=== PATIENT | female | born 1950 | race Caucasian/White ===

== ENCOUNTER 2017-04-10 08:34 | Emergency (ER) | payer OTHER ==
--- NOTE | 2017-04-10 08:42 | UC ---
Minor Trauma HPI - HPI Summary HPI Summary: 67 year old female presents with complains of left ankle and wrist pain secondary to a fall - History of Current Complaint Stated Complaint: LEFT WRIST/KNEE COMPLAINT Time Seen by Provider: 04/10/17 08:41 Hx Obtained From: Patient Onset/Duration: Sudden Onset Severity Initially: Moderate Severity Currently: Moderate Pain Scale Used: 0-10 Numeric - 7 Aggravating Factor(s): Nothing Alleviating Factor(s): Nothing - Allergies/Home Medications Allergies/Adverse Reactions: Allergies Allergy/AdvReac Type Severity Reaction Status Date / Time No Known Allergies Allergy Verified 04/10/17 08:55 PMH/Surg Hx/FS Hx/Imm Hx Previously Healthy: Yes - Surgical History Surgical History: Yes Surgery Procedure, Year, and Place: Appendectomy - Family History Known Family History: Positive: Unknown - Social History Alcohol Use: None Substance Use Type: None Smoking Status (MU): Never Smoked Tobacco - Immunization History Most Recent Influenza Vaccination: February 2015 Review of Systems Constitutional: Negative Skin: Negative Eyes: Negative ENT: Negative Respiratory: Negative Cardiovascular: Negative Gastrointestinal: Negative Genitourinary: Negative Motor: Negative Neurovascular: Negative Musculoskeletal: Other: - left ankle pain left wrist pain Neurological: Negative Psychological: Negative All Other Systems Reviewed And Are Negative: Yes Physical Exam Triage Information Reviewed: Yes Vital Signs Reviewed: Yes Eye Exam: Normal ENT Exam: Normal Dental Exam: Normal Neck exam: Normal Neck: Positive: 1 Respiratory Exam: Normal Cardiovascular Exam: Normal Abdominal Exam: Normal Musculoskeletal: Positive: Other: - left ankle pain left wrist pain Neurological Exam: Normal Psychological Exam: Normal Skin Exam: Normal Minor Trauma Course/Dx - Differential Dx/Diagnosis Provider Diagnoses: left ankle sprain. left wrist sprain Discharge - Discharge Plan Condition: Stable Disposition: HOME Prescriptions: Meloxicam(NF) [Mobic(NF)] 7.5 mg PO BID #30 tab Patient Education Materials: Ankle Sprain (ED), Wrist Sprain (ED) Referrals: Heron Mccormick MD [Medical Doctor] - Cierra Blevins MD [Primary Care Provider] -
[2017-04-10 09:00] VITALS: BP 154/84
--- NOTE | 2017-04-10 09:55 | RAD ---
HISTORY: Fall, left ankle pain COMPARISONS: None VIEWS: 3, Frontal, lateral, and oblique views of the left ankle FINDINGS: BONE DENSITY: Normal. BONES: There is no displaced fracture. There are calcaneal enthesophytes JOINTS: There is no arthropathy. ALIGNMENT: There is no dislocation. SOFT TISSUES: Unremarkable. OTHER FINDINGS: None. IMPRESSION: NO ACUTE OSSEOUS INJURY. IF SYMPTOMS PERSIST, RECOMMEND REPEAT IMAGING.
--- NOTE | 2017-04-10 09:56 | RAD ---
HISTORY: Fall, left wrist pain COMPARISONS: None VIEWS: 3, Frontal, lateral, and oblique views of the left wrist FINDINGS: BONE DENSITY: Normal. BONES: There is no displaced fracture. JOINTS: There is no arthropathy. ALIGNMENT: There is no dislocation. SOFT TISSUES: Unremarkable. OTHER FINDINGS: None. IMPRESSION: NO ACUTE OSSEOUS INJURY. IF SYMPTOMS PERSIST, RECOMMEND REPEAT IMAGING.
== END 2017-04-10 10:15 | disposition home or self-care (01) ==
LOC: UCCORT 08:34
DX: S93.402A Sprain of unspecified ligament of left ankle, initial encounter (principal); S63.502A Unspecified sprain of left wrist, initial encounter; W19.XXXA Unspecified fall, initial encounter; Y92.9 Unspecified place or not applicable
CPT/HCPCS: 99212; G0463

== ENCOUNTER 2019-07-24 09:14 | Emergency (ER) | payer OTHER ==
--- OUTSIDE RECORDS SUMMARY | 2019-07-24 09:30 | XMS REPORT | Continuity of Care Document ---
:1950 External Reference #:[id number] Author Name Maame Haque MD, PHD Address [address] [facility], [address] [place] [address] Care Team Providers Name Role Phone Maame Haque MD, PHD - Family Care Team Information Hebrew Professor [phone] Medicine Problems Active Problems Provider Date Benign essential hypertension Maame Haque MD, PHD Onset: 03/06/2019 Rheumatoid arthritis Maame Haque MD, PHD Onset: 03/19/2019 Vitamin D deficiency Maame Haque MD, PHD Onset: 03/19/2019 Social History Type Date Description Comments Sex Unknown Tobacco Use Start: Unknown Never Smoked Cigarettes Smoking Status Reviewed: 07/10/19 Never Smoked Cigarettes ETOH Use Currently consumes alcohol socially Tobacco Use Start: Unknown Patient has never smoked Allergies, Adverse Reactions, Alerts Description No Known Drug Allergies Medications Active Medications SIG Qnty Indications Ordering Date Provider Furosemide 1-2 tab by mouth 90tabs R60.0 Shari Sidhu, 06/11/2019 20mg every morning with [employer]GER Tablets potassium as needed for water retention Potassium Chloride 1 tab by mouth 90tabs R60.0 Shari Sidhu, 06/11/2019 [place] ER every day with [employer] MA[employer]GER 10Meq furosemide Tablets ER Tramadol HCL 1 tab by mouth 60tabs M06.9 Maame Haque, 06/11/2019 50mg twice a day as , PHD Tablets needed Tylenol 8 Hour 1 tab by mouth 180tabs M06.9 Maame Haque, 06/11/2019 Arthritis Pain twice a day as , PHD needed 650mg Tablets ER Flonase Allergy 1 spray each nares 15.800ml J30.2 Maame Haque, 2018 Relief every day , PHD 50mcg/Act Suspension Metformin HCL 1-2 tab by mouth 60tabs E66.01 Maame Haque, 04/24/2019 500mg every day PHD ALLYSSA Tablets Z68.42 Methotrexate Take 5 Tablets By 20tabs M06.9 Maame Haque, 03/19/2019 2.5mg Tablets Mouth Weekly as MD PHD Directed Vitamin D3 1 tab by mouth 90units E55.9 Maame Haque, 03/19/2019 125mcg (5000 [address]) every day every , PHD Chewtabs morning Ibuprofen three times a day Unknown 600mg Tablets as needed Tumeric Unknown Multi-Vitamin 1 by mouth every Unknown Tablets day History Medications Hydrochlorothiazide Take 1 Tablet 30tabs I10 [place], 04/24/2019 - 12.5mg By Mouth Every MD Maame, 07/10/2019 Tablets Day In The PHD Morning Prednisone 1 tab by mouth 10tabs M06.9 [place], 03/19/2019 - 20mg Tablets every day MD Maame, 07/10/2019 every morning PHD Medications Administered in Office Medication SIG Qnty Indications Ordering Provider Date Injection Ketorolac Maame Haque MD, PHD 06/11/2019 Tromethamine 30 MG/mL (Toradol) Injection Immunizations CPT Code Status Date Vaccine Lot # [id number] Given 03/14/2019 Influenza Virus Vaccine, Quadrivalent, 36 Mos+, .5ML Vital Signs Date Vital Result Comment 07/10/2019 8:29am BP Systolic 133 mmHg BP Diastolic 86 mmHg Body Temperature 97.5 F Heart Rate 86 /min Respiratory Rate 18 /min Height 68 inches 5'8" Weight 303.00 lb BMI (Body Mass Index) 46.1 kg/m2 BSA (Body Surface Area) 2.44 m2 [place] body weight in kilograms 63 kg O2 % BldC Oximetry 96 % 06/11/2019 11:30am BP Systolic 174 mmHg BP Diastolic 89 mmHg Body Temperature 97.8 F Heart Rate 65 /min Respiratory Rate 18 /min Height 68 inches 5'8" Weight 307.00 lb BMI (Body Mass Index) 46.7 kg/m2 BSA (Body Surface Area) 2.45 m2 [place] body weight in kilograms 63 kg O2 % BldC Oximetry 99 % Results Test Acquired Date Facility Test Result H/L Range Note LDL Cholesterol 07/10/2019 [facility] Cholesterol 205 mg/dL High <200 1, 2 Profile [address] [place], [place] [id number] [phone] Triglycerides 95 mg/dL <150 3 HDL Cholesterol 61 mg/dL >40 4 LDL-Cholesterol 125 mg/dL < 100 5 Glycohemoglobin 07/10/2019 [facility] Glycohemoglobin 5.8 % Normal 4.2-6.3 6 A1c [address] (A1c) [place], [place] [id number] [phone] eAG 120 mg/dL Laboratory test 07/10/2019 [facility] Vitamin <pending> finding [address] [facility] D,25-[place] [address] [phone] Basic Metabolic 07/10/2019 [facility] Glucose 90 mg/dL Normal 74-1 Panel [address] [facility] [address] [place] [address] [phone] BUN 22 mg/dL High 7-18 Creatinine 0.9 mg/dL Normal 0.6-1.3 Glom Filtration Rate, Estimate >60 mL/min >60 If >60 mL/min >60 7 BUN/Creat 24.4 ratio Sodium 138 mmol/L Normal 136-145 Potassium 3.8 mmol/L Normal 3.5-5.1 Chloride 103 mmol/L Normal 98-107 Carbon Dioxide 35 mmol/L High 21-32 Anion Gap 0 mEq/L Low 8-16 Calcium 8.8 mg/dL Normal 8.5-10.1 Urine Culture 04/24/2019 [facility] Urine Culture MIXED URETHRAL F 8, 9 [address] [facility] <SEE NOTE> [place] [address] [phone] Quantity 10,000 - 50,000 <SEE NOTE> 10 Ua RFX Micro & 04/24/2019 [facility] Urine Color DK YELLOW Yellow Culture II [address] [place] [address] [phone] Urine Clarity CLEAR Clear Urine Glucose - Dipstick NEGATIVE mg/dL Negative Urine Bilirubin - Dipstick NEGATIVE Negative Urine Ketone TRACE mg/dL Negative Urine Specific [place] 1.025 Normal 1.010-1.030 Urine Blood NEGATIVE Negative Urine PH 5.5 Low 6.5-7.5 Urine Protein - Dipstick NEGATIVE mg/dL Negative Urine Urobilinogen - Dipstick 0.2 E.U./dL Normal 0.2-1.0 Urine Nitrite - Dipstick NEGATIVE Negative Urine Leuk Esterase NEGATIVE Negative Protein/Creatinine 04/24/2019 [facility] Creatinine,Urine 168.2 Not Ratio,Urine [address] mg/dL [place]ab. [place], [place] [id number] [phone] Protein,Total,Urine 12.7 mg/dL Not Estab. Protein/Creatinine Ratio 76 MG/GCRE 0-200 11 Urine Dipstick 03/06/2019 [facility] Ua Color yellow Yellow Ua Clarity clear Clear Ua Leuko negative Negative Ua Nitrite negative Negative Ua Urobilinogen 0.2 0.2 - 1.0 E.U./dL Ua Protein negative Negative Ua PH 5.0 Low 6.5-7.5 Ua Blood negative Negative Ua Specific [place] 1.030 1.010-1.030 Ua Ketones negative Negative Ua Bilirubin negative Negative Ua Glucose negative Negative Laboratory test 03/06/2019 [facility] Thyroid 2.08 Normal 0.30-4.[address] Stim uIU/[place] [address] Hormone [phone] Free T4 1.08 ng/dL Normal 0.76-1.46 Sedimentation Rate 88 mm/hr High 2-45 13 C-Reactive Protein,Quant 6.7 mg/L High <3.0 Lyme Igg & Igm By 03/06/2019 [facility] Lyme AB Igg By Western . Western Blot [address] [place] [address] [phone] P93 AB Absent . P66 AB Absent . P58 AB Absent . P45 AB Absent . P41 AB Absent . P39 AB Absent . P30 AB Absent . P28 AB Absent . P23 AB Absent . P18 AB Absent . Lyme Igg WB Interpretation Negative . 14 Lyme AB Igm By Western Blot . P41 AB Absent . P39 AB Absent . P23 AB Absent . Lyme Igm WB Interpretation Negative . 15 Laboratory test 03/06/2019 [facility] Rheumatoid 51.6 High 0.0-15.[address] Factor Screen IU/[place] [address] [phone] Vitamin D,25-Hydroxy 28.1 ng/mL Low 30.0-100.0 16 CCP Igg/Iga 03/06/2019 [facility] CCP Igg/Iga 13 units 0-[address] [place] [address] [phone] 1 M06.9,E55.9,Z13.1,T88.7xxA,I10 2 Reference Guidelines*: Desirable: ........... < 200 mg/dL Borderline High: ..... 200-239 mg/dL High: ................ >= 240 mg/dL * The National Cholesterol Education Program (NCEP) 3 Reference Guidelines*: Normal: ............. < 150 mg/dL Borderline High: .... 150-199 mg/dL High: ............... 200-499 mg/dL Very High: .......... > 500 mg/dL * Source: National Cholesterol Education Program (NCEP) 4 Reference Guidelines*: Low HDL: ..... < 40 mg/dL Normal: ..... 40-60 mg/dL Desirable: ... > 60 mg/dL *The National Cholesterol Education Program(NCEP) 5 Reference Guidelines*: Optimal:........... <100 mg/dL Near Optimal....... 100-129 mg/dL Borderline High.... 130-159 mg/dL High............... 160-189 mg/dL Very High.......... >=190 mg/dL * Source: National Cholesterol Education Program (NCEP) 6 Elevated levels of HbA1c suggest the need for more aggressive treatment of glycemia. The [place] Diabetes Association recommends that a primary goal of therapy should be a HbA1c of <7% and that physicians should re-evaluate the treatment regimen in patients with HbA1c values consistently >8%. 7 Note: Persistent reduction for 3 months or more in an eGFR <60 mL/min/1.73 m2 defines CKD. Patients with eGFR values >/=60 mL/min/1.73 m2 may also have CKD if evidence of persistent proteinuria is present. The original MDRD equation for estimated GFR is not valid for patients less than 18 years of age. Additional information may be found at www.kdoqi.org. 8 M06.9 R39.15 I10 9 MIXED URETHRAL ZIYAD 10 10,000 - 50,000 CFU/mL 11 INFCE Result Units: mg/g creat Performed at: RN - [facility] [address] [id number] Head Stock Transfer Clerk: Kylah Reynolds MD, Phone: [phone] 12 B99.10 13 This result was obtained with an ESR method that is not based on the standard Westergren Method. When comparing results obtained from the traditional Westergren ESR and this method it is important to refer to the reference range for each method. Method: Capillary Photometry 14 Positive: 5 of the following Bor[place]-specific bands: 18,23,28,30,39,41,45,58, 66, and 93. Negative: No bands or banding patterns which do not meet positive criteria. 15 Note: An equivocal or positive EIA result followed by a negative Line Blot result is considered NEGATIVE. An equivocal or positive EIA result followed by a positive Line Blot is considered POSITIVE by the CDC. Positive: 2 of the following bands: 23,39 or 41 Negative: No bands or banding patterns which do not meet positive criteria. Criteria for positivity are those recommended by CDC/ASTPHLD. p23=Osp C, t51=icoqmqpel Note: Sera from individuals with the following may cross react in the Lyme Line Blot assays: other spirochetal diseases (periodontal disease, leptospirosis, relapsing fever, yaws, and pinta); connective autoimmune (Rheumatoid Arthritis and Systemic Lupus Erythematosus and also individuals with Antinuclear Antibody); other infections (Ephesus Spotted Fever; Hernando-Hinojosa Virus, and Cytomegalovirus). 16 Vitamin D deficiency has been defined by the [place] of [employer] and an Endocrine Society practice guideline as a level of serum 25-OH vitamin D less than 20 ng/mL (1,2). The Endocrine Society went on to further define vitamin D insufficiency as a level between 21 and 29 ng/mL (2). 1. IOM ([place] of [employer]). 2010. Dietary reference intakes for calcium and D. [place]: The National Academies Press. 2. Shaji LACY, Gagan LYMAN, Rony LECHUGA, et al. Evaluation, treatment, and prevention of vitamin D deficiency: an Endocrine Society clinical practice guideline. JCEM. 2010; 96(7):1911-30. Performed at: [facility] [id number] Head Stock Transfer Clerk: Kylah Reynolds MD, Phone: [phone] 17 Negative <20 Weak positive 20 - 39 Moderate positive 40 - 59 Strong positive >59 Performed at: [facility] [id number] Head Stock Transfer Clerk: Kylah Reynolds MD, Phone: [phone] Performed at: [facility] [id number] Head Stock Transfer Clerk: Ally Marquez MD, Phone: [phone] Procedures Date Code Description Status 06/11/2019 74132 Theraputic Or Diagnostic Injection Completed 03/06/2019 00543 EKG-Tracing And Report Completed 05/22/2013 [id number] Mammogram Completed Medical Devices Description No Information Available Encounters Type Date Location Provider Dx Diagnosis Office Visit 07/10/2019 Family Maame Gonzalez, M06.9 Rheumatoid 8:30a Arnulfo Spain MD, PHD arthritis, unspecified I10 Essential (primary) hypertension E55.9 Vitamin D deficiency, unspecified Z68.42 Body mass index (BMI) 45.0-49.9, adult Office Visit 06/11/2019 11:30a Family Amara Haque M06.9 Rheumatoid Arnulfo Isabel MD, arthritis, PHD unspecified R60.0 Localized edema I10 Essential (primary) hypertension Z68.42 Body mass index (BMI) 45.0-49.9, adult Office Visit 04/24/2019 8:30a Missael Bangura6.9 Rheumatoid Arnulfo Isabel MD, arthritis, PHD unspecified M79.671 Pain in right foot E55.9 Vitamin D deficiency, unspecified I10 Essential (primary) hypertension R60.0 Localized edema R39.15 Urgency of urination J30.2 Other seasonal allergic rhinitis Z68.42 Body mass index (BMI) 45.0-49.9, adult Z13.220 Encounter for screening for lipoid disorders Z13.1 Encounter for screening for diabetes mellitus Office Visit 03/19/2019 9:00a Family [facility] [place], M06.9 Rheumatoid [facility] MD Maame, arthritis, PHD unspecified M79.671 Pain in right foot E55.9 Vitamin D deficiency, unspecified I10 Essential (primary) hypertension Office Visit 03/06/2019 1:00p [facility] [place] M72.2 Plantar fascial [facility] MD Maame, fibromatosis PHD H81.10 Benign paroxysmal vertigo, unspecified ear G47.9 Sleep disorder, unspecified E66.09 Other obesity due to excess calories R06.83 Snoring I10 Essential (primary) hypertension R31.9 Hematuria, unspecified R53.83 Other fatigue Assessments Date Code Description Provider 07/10/2019 M06.9 Rheumatoid arthritis, unspecified Maame Haque MD, PHD 07/10/2019 I10 Essential (primary) hypertension Maame Haque MD, PHD 07/10/2019 E55.9 Vitamin D deficiency, unspecified Maame Haque MD, PHD 07/10/2019 Z68.42 Body mass index (BMI) 45.0-49.9, adult Maame Haque MD , PHD 06/11/2019 M06.9 Rheumatoid arthritis, unspecified Maame Haque MD, PHD 06/11/2019 R60.0 Localized edema Maame Haque MD, PHD 06/11/2019 I10 Essential (primary) hypertension Maame Haque MD, PHD 06/11/2019 Z68.42 Body mass index (BMI) 45.0-49.9, adult Maame Haque MD , PHD 04/24/2019 M06.9 Rheumatoid arthritis, unspecified Maame Haque MD, PHD 04/24/2019 M79.671 Pain in right foot Maame Haque MD, PHD 04/24/2019 E55.9 Vitamin D deficiency, unspecified Maame Haque MD, PHD 04/24/2019 I10 Essential (primary) hypertension Maame Haque MD, PHD 04/24/2019 R60.0 Localized edema Maame Haque MD, PHD 04/24/2019 R39.15 Urgency of urination Maame Haque MD, PHD 04/24/2019 J30.2 Other seasonal allergic rhinitis Maame Haque MD, PHD 04/24/2019 Z68.42 Body mass index (BMI) 45.0-49.9, adult Maame Haque MD , PHD 04/24/2019 Z13.220 Encounter for screening for lipoid Maame Haque MD, PHD disorders 04/24/2019 Z13.1 Encounter for screening for diabetes Maame Haque MD, PHD mellitus 03/19/2019 M06.9 Rheumatoid arthritis, unspecified Maame Haque MD, PHD 03/19/2019 M79.671 Pain in right foot Maame Haque MD, PHD 03/19/2019 E55.9 Vitamin D deficiency, unspecified Maame Haque MD, PHD 03/19/2019 I10 Essential (primary) hypertension Maame Haque MD, PHD 03/06/2019 M72.2 Plantar fascial fibromatosis Maame Haque MD, PHD 03/06/2019 H81.10 Benign paroxysmal vertigo, unspecified Maame Haque MD , PHD ear 03/06/2019 G47.9 Sleep disorder, unspecified Maame Haque MD, PHD 03/06/2019 E66.09 Other obesity due to excess calories Maame Haque MD, PHD 03/06/2019 R06.83 Snoring Maame Haque MD, PHD 03/06/2019 I10 Essential (primary) hypertension Maame Haque MD, PHD 03/06/2019 R31.9 Hematuria, unspecified Maame Haque MD, PHD 03/06/2019 R53.83 Other fatigue Maame Haque MD, PHD Plan of Treatment Future Appointment(s):09/11/2019 8:30 am - Maame Haque MD, PHD at [facility]07/10/2019 - Maame Haque MD, PHDM06.9 Rheumatoid arthritis, unspecifiedComments:-Stable now with methotrexate, continue. -Use tylenol arthritis and then tramadol for pain management.-Only use the prednisone when having a flare upI10 Essential (primary) hypertensionComments:- Stable. Continue current management. Monitor -Refill of Furosemide sent in mawwdW63.9 Vitamin D deficiency, unspecifiedComments:Continue vitamin D3 supplement 5000 IU cvrtyD27.42 Body mass index (BMI) 45.0-49.9, adultComments:- Continue on your weight loss journey, your hard work will pay offAllFollow up:- Follow up in 2 months for RA Functional Status Functional Condition Comment Date Status Independent with all ADL's Active Mental Status Description No Information Available Referrals Refer to Reason for Referral Status Appt Date Jeffrey Barboza MD New Dx Rheumatoid Arthtritis RF positive, Closed 2018 Elevated Sed, CRP. Vit D deficient. Starting prednisone short course then Methotrexate. Main pain in right foot and bilateral knees are chronic. [facility] [address] [address] [phone]
--- OUTSIDE RECORDS SUMMARY | 2019-07-24 09:30 | XMS REPORT | Summary of Care ---
:1950 Author Organization [facility] Address [address] [place] [address] Care Team Providers Name Role Phone Maame Haque MD PhD Primary Care Provider Reason for Visit Reason Comments Follow-up Encounter Details Date Type Department Care Team Description 07/03/2019 Office Visit Joe Simons, Seropositive rheumatoid arthritis (Primary Dx); Rheumatology MD Jeffrey High risk medication use [address] [id number] [place] [address] [phone] Allergies No Known Allergiesdocumented as of this encounter (statuses as of 07/04/2019) Medications Medication Sig Dispensed Refills Start End Status Date Date ibuprofen Take 600 mg by 0 Active (ADVIL,MOTRIN) 600 MG mouth every 6 tablet (six) hours as needed for Pain TURMERIC PO Take by mouth 0 Active Multiple Vitamin Take 1 tablet 0 Active (MULTIVITAMIN) tablet by mouth daily predniSONE (DELTASONE) Take 20 mg by 0 Active 20 MG tablet mouth as needed metFORMIN HCl 500 MG TAKE 1 TO 2 0 04/24/20 Active Oral Tablet TABS BY MOUTH 19 (GLUCOPHAGE) EVERY DAY Vitamin D3 125 MCG Chew by Mouth 0 03/19/20 Active (5000 UT) Oral Tablet 19 Chewable Furosemide 20 MG Oral TAKE 1 TO 2 0 06/11/19 Active Tablet (LASIX) TABS BY MOUTH 20 EVERY MORNING WITH POTASSIUM NEEDED FOR WATER RETENTION Klor-Con M10 10 MEQ TAKE 1 TABLET 0 06/11/19 Active Oral Tablet Extended BY MOUTH EVERY 20 Release DAY WITH FUROSEMIDE Methotrexate 2.5 MG Take 6 tablets 72 tablet 1 07/03/19 Active Oral Tablet by mouth every 20 020 7 (seven) days Folic Acid 1 MG Oral Take 1 tablet 90 tablet 1 07/03/19 Active Tablet (FOLVITE) by mouth daily 20 020 hydroCHLOROthiazide TAKE 1 TABLET 0 04/24/20 Discontinued 12.5 MG Oral Tablet BY MOUTH EVERY 020 (HYDRODIURIL) DAY IN THE MORNING Methotrexate 2.5 MG Take 6 tablets 72 tablet 1 05/08/20 Discontinued Oral Tablet by mouth every 020 (Reorder) 7 (seven) days Folic Acid 1 MG Oral Take 1 tablet 90 tablet 1 05/08/20 Discontinued Tablet (FOLVITE) by mouth daily 020 (Reorder) documented as of this encounter (statuses as of 07/04/2019) Active Problems No known active problemsdocumented as of this encounter (statuses as of 2019) Social History Tobacco Use Types Packs/Day Years Used Date Never Smoker 0 Smokeless Tobacco: Never Used Tobacco Cessation: Counseling Given: No Alcohol Use Drinks/Week oz/Week Comments Yes social Sex Assigned at Date Recorded Not on file Job Start Date Occupation Industry Not on file Not on file Not on file Travel History Travel Start Travel End No recent travel history available. documented as of this encounter Last Filed Vital Signs Vital Sign Reading Time Taken Comments Blood Pressure 147/93 07/03/2019 9:44 AM EST Pulse 78 07/03/2019 9:44 AM EST Temperature 36.9 07/03/2019 9:44 AM EST C (98.5 F) Respiratory Rate 16 07/03/2019 9:44 AM EST Oxygen Saturation 95% 07/03/2019 9:44 AM EST Inhaled Oxygen Concentration - - Weight 134.7 kg (297 lb) 07/03/2019 9:44 AM EST Height 172.7 cm (5' 8") 07/03/2019 9:44 AM EST Body Mass Index 45.16 07/03/2019 9:44 AM EST documented in this encounter Progress Notes Jeffrey Simons MD - 07/03/2019 9:45 AM EST Subjective: Patient ID: Rosario Sands is a 69 y.o. female. She has seropositive rheumatoid arthritis. She was initially seen 2 months ago. At that time, I continued methotrexate initially prescribed by her primary care providers. Current dose is 6 tablets per week as well as folic acid 1 mg per day. I did blood work, which confirmed her rheumatoid factor positivity. At the time of her appointment, I did not find synovitis, likely related to the fact that she had been on the methotrexate prior to me seeing her. Since her last appointment she has been doing well except for a couple of weeks when she was in [place] when her symptoms came back, mostly inher knees, related to the fact that she did not have her medication available. Since then she has been doing better. She is tolerating the medication well. Rheumatologic review of systems, otherwise, unremarkable. Musculoskeletal exam today, no synovitis. ASSESSMENT: Seropositive rheumatoid arthritis, seems to be controlled on methotrexate. PLAN: 1. Continue medications without changes. 2. Routine labs today. 3. Followup appointment in 3-4 months. Results for orders placed or performed in visit on 07/03/19 Sedimentation rate, automated Result Value Ref Range Sed Rate - ESR 31 (H) <30 mm/hr Inflammatory C-Reactive Protein (CRP) Result Value Ref Range C Reactive Protein 4.2 <8.0 mg/L Creatinine with GFR Result Value Ref Range Creatinine 1.03 (H) 0.50 - 0.90 mg/dL GFR Non 2008 CDK-EPI 55 (L) >60 mL/min/1.73m2 GFR 2008 CKD-EPI 64 >60 mL/min/1.73m2 CBC and Differential Result Value Ref Range White Blood Cell 4.1 4 - 10 10*3/uL Red Blood Cell 4.49 4.1 - 5.3 10*6/uL Hemoglobin 13.2 11.5 - 15.5 g/dL Hematocrit 40.2 36 - 45 % Mean Cell Volume 89.4 80 - 96 fL Mean Cell Hemoglobin 29.4 27 - 33 pg Mean Cell Hgb Conc 33.0 32.0 - 36.0 g/dL Red Cell Dist Width 16.3 (H) 11.5 - 14.5 % Platelet Count 256 150 - 400 10*3/uL Differential Type Manual Diff Neutrophil 61 % Lymphocyte 30 % Monocyte 3 % Eosinophil 3 % Basophil 3 % Abs Neutrophil 2.49 1.8 - 7.0 10*3/uL Abs Lymphocyte 1.25 1.2 - 4.0 10*3/uL Abs Monocyte 0.12 0 - 0.8 10*3/uL Abs Eosinophil 0.12 0 - 0.5 10*3/uL Abs Basophil 0.12 0 - 0.2 10*3/uL Poikilocytosis 1+ AST Result Value Ref Range AST/SGO 21 <32 U/L ALT Result Value Ref Range ALT/SGP 23 <33 U/L HPI Rosario has a past medical history of Arthritis and Hypertension. Rosario has a past surgical history that includes Appendectomy. Her family history includes Cystic fibrosis in her brother and sister. Rosario reports that she has never smoked. She has never used smokeless tobacco. She reports current alcohol use. No history on file for drug. Rosario has a current medication list which includes the following prescription(s) : folic acid, furosemide, hydrochlorothiazide, ibuprofen, klor-con m10, metformin, methotrexate, multivitamin, prednisone, turmeric, and vitamin d3. Rosario has No Known Allergies. Review of Systems Constitutional: Negative. HENT: Negative. Eyes: Negative. Respiratory: Negative. Cardiovascular: Negative. Gastrointestinal: Negative. Endocrine: Negative. Genitourinary: Negative. Musculoskeletal: Positive for arthralgias. Negative for joint swelling. Skin: Negative. Allergic/Immunologic: Negative. Neurological: Negative. Hematological: Negative. Psychiatric/Behavioral: Negative. Objective: Physical Exam Vitals signs reviewed. Constitutional: Appearance: She is well-developed. HENT: Head: Normocephalic and atraumatic. Eyes: Conjunctiva/sclera: Conjunctivae normal. Neck: Thyroid: No thyromegaly. Trachea: No tracheal deviation. Cardiovascular: Rate and Rhythm: Normal rate and regular rhythm. Pulmonary: Effort: Pulmonary effort is normal. No respiratory distress. Musculoskeletal: General: No swelling or tenderness. Skin: General: Skin is warm and dry. Neurological: Mental Status: She is alert and oriented to person, place, and time. documented in this encounter Plan of Treatment Date Type Specialty Care Team Description 11/06/2019 Office Visit Rheumatology Jeffrey Simons MD [address] [place] [address] [address] [place] [address] [phone] Health Maintenance Due Date Last Done Comments Hepatitis C Screening (B. 1950 [id number]) MMR Vaccines (1 of 1 - Standard 01/21/1951 series) Varicella Vaccines (1 of 2 - 01/21/1951 2-dose childhood series) DTaP,Tdap,and Td Vaccines (1 - 01/21/1959 Tdap) Breast Cancer Screening 2 years 01/21/2002 Colon Cancer Screening 10 yrs 01/21/2002 Zoster Vaccines (1 of 2) 01/21/2002 Osteoporosis Screening 2 yr 01/21/2017 Pneumococcal Vaccine: 65+ Years (1 01/21/2017 of 2 - PCV13) Influenza Vaccine 02/19/2019 HIB Vaccines Aged Out No longer eligible based on patient's age to complete this topic Hepatitis A Vaccines Aged Out No longer eligible based on patient's age to complete this topic Hepatitis B Vaccines Aged Out No longer eligible based on patient's age to complete this topic IPV Vaccines Aged Out No longer eligible based on patient's age to complete this topic Pneumococcal Vaccine: Pediatrics Aged Out No longer eligible based on (0 to 5 Years) and At-Risk patient's age to complete this Patients (6 to 64 Years) topic documented as of this encounter Procedures Procedure Name Priority Date/Time Associated Comments Diagnosis CREATININE WITH GFR Routine 07/03/2019 10:03 High risk Results for this AM EST medication use procedure are in the results section. SEDIMENTATION RATE, Routine 07/03/2019 10:03 High risk Results for this AUTOMATED AM EST medication use procedure are in the results section. CBC AND DIFFERENTIAL Routine 07/03/2019 10:03 High risk Results for this AM EST medication use procedure are in the results section. INFLAMMATORY Routine 07/03/2019 10:03 High risk Results for this C-REACTIVE PROTEIN AM EST medication use procedure are in (CRP) the results section. ALT Routine 07/03/2019 10:03 High risk Results for this AM EST medication use procedure are in the results section. AST Routine 07/03/2019 10:03 High risk Results for this AM EST medication use procedure are in the results section. documented in this encounter Results Sedimentation rate, automated (07/03/2019 10:03 AM EST) Sed Rate - ESR 31 (H) <30 mm/hr [facility] Pathology Specimen EDTA Whole Blood Performing Organization Address [facility] Phone Number [facility] PATH[facility] [address] [place] [address] [facility] [address] [place] [address] Pathology Inflammatory C-Reactive Protein (CRP) (07/03/2019 10:03 AM EST) C Reactive Protein 4.2 <8.0 mg/L [facility] Pathology Specimen Plasma Performing Organization Address [facility] Phone Number [facility] [address] [place] [address] [facility] [address] [place] [address] Pathology Creatinine with GFR (07/03/2019 10:03 AM EST) Creatinine 1.03 (H) 0.50 - 0.90 [facility] mg/dL [facility] Pathology GFR Non 55 (L) >60 [facility] [employer] [place] 2008 CDK-EPI mL/min/1.73m2 [facility] Pathology GFR 64 >60 [facility] 2009 CKD-EPI mL/min/1.73m2 [facility] Pathology Specimen Plasma Performing Organization Address [facility] Phone Number [facility] CL[facility]OLOG[facility] [address] [place] [address] [facility] [address] [place] [id number] Pathology CBC and Differential (07/03/2019 10:03 AM EST) White Blood Cell 4.1 4 - 10 10*3/uL [facility] Pathology Red Blood Cell 4.49 4.1 - 5.3 [facility] 10*6/uL [facility] Pathology Hemoglobin 13.2 11.5 - 15.5 [facility] g/dL [facility] Pathology Hematocrit 40.2 36 - 45 % [facility] Pathology Mean Cell Volume 89.4 80 - [address] [facility] Pathology Mean Cell Hemoglobin 29.4 27 - [address] [facility] Pathology Mean Cell Hgb Conc 33.0 32.0 - 36.0 [facility] g/dL [facility] Pathology Red Cell Dist Width 16.3 (H) 11.5 - 14.5 % [facility] Platelet Count 256 150 - 400 [facility] 10*3/uL [facility] Pathology Differential Type Manual Diff [facility] Pathology Neutrophil 61 % [facility] Lymphocyte 30 % [facility] Monocyte 3 % [facility] Eosinophil 3 % [facility] Pathology Basophil 3 % [facility] Pathology Abs Neutrophil 2.49 1.8 - 7.0 [facility] 10*3/uL [facility] Pathology Abs Lymphocyte 1.25 1.2 - 4.0 [facility] 10*3/uL [facility] Pathology Abs Monocyte 0.12 0 - 0.8 [facility] 10*3/uL [facility] Pathology Abs Eosinophil 0.12 0 - 0.5 [facility] 10*3/uL [facility] Pathology Abs Basophil 0.12 0 - 0.2 [facility] 10*3/uL [facility] Pathology Poikilocytosis 1+ [facility] Pathology Specimen EDTA Whole Blood Performing Organization Address [facility] Phone Number [facility] PATHOLOG[facility] [address] [place] [address] [facility] [address] [place] [address] Pathology AST (07/03/2019 10:03 AM EST) AST/SGO 21 <32 U/L [facility] Pathology Specimen Plasma Performing Organization Address [facility] Phone Number [facility] [address] [place] [address] [facility] [address] [place] [address] Pathology ALT (07/03/2019 10:03 AM EST) ALT/SGP 23 <33 U/L [facility] Pathology Specimen Plasma Performing Organization Address [facility] Phone Number [facility] [address] [place] [address] [phone] [facility] [address] [place] [address] Pathology documented in this encounter Visit Diagnoses Diagnosis Seropositive rheumatoid arthritis - Primary Rheumatoid arthritis High risk medication use Encounter for long-term (current) use of other medications documented in this encounter
--- OUTSIDE RECORDS SUMMARY | 2019-07-24 09:30 | XMS REPORT | Continuity of Care Document ---
:1950 External Reference #:[id number] Author Name Maame Haque MD, PHD Address [address], [address] [place] [address] Care Team Providers Name Role Phone Maame Haque MD, PHD - Family Care Team Information [employer] Medicine Problems Active Problems Provider Date Benign essential hypertension Maame Haque MD, PHD Onset: 03/06/2019 Rheumatoid arthritis Maame Haque MD, PHD Onset: 03/19/2019 Vitamin D deficiency Maame Haque MD, PHD Onset: 03/19/2019 Social History Type Date Description Comments Sex Unknown Tobacco Use Start: Unknown Never Smoked Cigarettes Smoking Status Reviewed: 06/11/19 Never Smoked Cigarettes ETOH Use Currently consumes alcohol socially Tobacco Use Start: Unknown Patient has never smoked Allergies, Adverse Reactions, Alerts Description No Known Drug Allergies Medications Active Medications SIG Qnty Indications Ordering Date Provider Furosemide 1-2 tab by mouth 30tabs R60.0 [place], 20mg Tablets every morning MD Maame, 0 with potassium PHD as needed for water retention Potassium Chloride [place] 1 tab by mouth 30tabs R60.0 [place], ER every day with MD Maame, 0 10Meq Tablets ER furosemide PHD Tramadol HCL 1 tab by mouth 60tabs M06.9 [place], 50mg Tablets twice a day as MD Maame, 0 needed PHD Tylenol 8 Hour Arthritis 1 tab by mouth 180tabs M06.9 [place], Pain twice a day as MD Maame, 0 650mg Tablets ER needed PHD Hydrochlorothiazide 1 tab by mouth 30tabs I10 [place], 12.5mg every morning MD Maame, 9 Tablets PHD Flonase Allergy Relief 1 spray each 15.800ml J30.2 [place], nares every day MD Maame, 9 50mcg/Act Suspension PHD Metformin HCL 1-2 tab by mouth 60tabs E66.01 [place], 500mg Tablets every day MD Maame, 9 PHD Z68.42 Prednisone 1 tab by mouth 10tabs M06.9 Maame Haque, 03/19/2019 20mg Tablets every day every , PHD morning Methotrexate Take 5 Tablets By 20tabs M06.9 Maame Haque, 03/19/2019 2.5mg Tablets Mouth Weekly as , PHD Directed Vitamin D3 1 tab by mouth 90units E55.9 Maame Haque, 03/19/2019 125mcg (5000 Ut) every day every , PHD Chewtabs morning Ibuprofen three times a day Unknown 600mg Tablets as needed Tumeric Unknown Multi-Vitamin 1 by mouth every Unknown Tablets day Medications Administered in Office Medication SIG Qnty Indications Ordering Provider Date Injection Ketorolac Maame Haque MD, PHD 06/11/2019 Tromethamine 30 MG/mL (Toradol) Injection Immunizations CPT Code Status Date Vaccine Lot # [id number] Given 03/14/2019 Influenza Virus Vaccine, Quadrivalent, 36 Mos+, .5ML Vital Signs Date Vital Result Comment 06/11/2019 11:30am BP Systolic 174 mmHg BP Diastolic 89 mmHg Body Temperature 97.8 F Heart Rate 65 /min Respiratory Rate 18 /min Height 68 inches 5'8" Weight 307.00 lb BMI (Body Mass Index) 46.7 kg/m2 BSA (Body Surface Area) 2.45 m2 [place] body weight in kilograms 63 kg O2 % BldC Oximetry 99 % 04/24/2019 8:26am BP Systolic Sitting Left Arm 151 mmHg BP Diastolic Sitting Left Arm 76 mmHg Body Temperature 96.3 F Heart Rate 83 /min Respiratory Rate 20 /min Height 68 inches 5'8" Weight 297.00 lb BMI (Body Mass Index) 45.2 kg/m2 BSA (Body Surface Area) 2.42 m2 [place] body weight in kilograms 63 kg O2 % BldC Oximetry 95 % Results Test Acquired Date Facility Test Result H/L Range Note Urine Culture 04/24/2019 [facility] Urine Culture MIXED URETHRAL 1, [address] <SEE NOTE> [place] [address] [phone] Quantity 10,000 - 50,000 <SEE NOTE> 3 Ua RFX Micro & 04/24/2019 [facility] Urine Color DK YELLOW Yellow Culture II [address] [place], [place] [id number] [phone] Urine Clarity CLEAR Clear Urine Glucose - Dipstick NEGATIVE mg/dL Negative Urine Bilirubin - Dipstick NEGATIVE Negative Urine Ketone TRACE mg/dL Negative Urine Specific [place] 1.025 Normal 1.010-1.030 Urine Blood NEGATIVE Negative Urine PH 5.5 Low 6.5-7.5 Urine Protein - Dipstick NEGATIVE mg/dL Negative Urine Urobilinogen - Dipstick 0.2 E.U./dL Normal 0.2-1.0 Urine Nitrite - Dipstick NEGATIVE Negative Urine Leuk Esterase NEGATIVE Negative Protein/Creatinine 04/24/2019 [facility] Creatinine,Urine 168.2 Not Ratio,Urine [address] mg/dL Estab. [place], [place] [id number] [phone] Protein,Total,Urine 12.7 mg/dL Not Estab. Protein/Creatinine Ratio 76 MG/GCRE 0-200 4 Urine Dipstick 03/06/2019 [facility] Ua Color yellow Yellow Ua Clarity clear Clear Ua Leuko negative Negative Ua Nitrite negative Negative Ua Urobilinogen 0.2 0.2 - 1.0 E.U./dL Ua Protein negative Negative Ua PH 5.0 Low 6.5-7.5 Ua Blood negative Negative Ua Specific [place] 1.030 1.010-1.030 Ua Ketones negative Negative Ua Bilirubin negative Negative Ua Glucose negative Negative Laboratory test 03/06/2019 [facility] Thyroid 2.08 Normal 0.30-4.[address] Stim uIU/[place] [address] Hormone [phone] Free T4 1.08 ng/dL Normal 0.76-1.46 Sedimentation Rate 88 mm/hr High 2-45 6 C-Reactive Protein,Quant 6.7 mg/L High <3.0 Lyme Igg & Igm By 03/06/2019 [facility] Lyme AB Igg By Western . Western Blot [address] [place] [address] [phone] P93 AB Absent . P66 AB Absent . P58 AB Absent . P45 AB Absent . P41 AB Absent . P39 AB Absent . P30 AB Absent . P28 AB Absent . P23 AB Absent . P18 AB Absent . Lyme Igg WB Interpretation Negative . 7 Lyme AB Igm By Western Blot . P41 AB Absent . P39 AB Absent . P23 AB Absent . Lyme Igm WB Interpretation Negative . 8 Laboratory test 03/06/2019 [facility] Rheumatoid 51.6 High 0.0-15.[address] Factor Screen IU/[place] [address] [phone] Vitamin D,25-Hydroxy 28.1 ng/mL Low 30.0-100.0 9 CCP Igg/Iga 03/06/2019 [facility] CCP Igg/Iga 13 units 0-[address] [place] [address] [phone] 1 M06.9 R39.15 I10 2 MIXED URETHRAL ZIYAD 3 10,000 - 50,000 CFU/mL 4 INFCE Result Units: mg/g creat Performed at: RN - [facility] [address] [id number] Produce Wrapper: Kylah Reynolds MD, Phone: [phone] 5 h81.10 6 This result was obtained with an ESR method that is not based on the standard Westergren Method. When comparing results obtained from the traditional Westergren ESR and this method it is important to refer to the reference range for each method. Method: Capillary Photometry 7 Positive: 5 of the following Borrelia-specific bands: 18,23,28,30,39,41,45,58, 66, and 93. Negative: No bands or banding patterns which do not meet positive criteria. 8 Note: An equivocal or positive EIA result [...] are those recommended by CDC/ASTPHLD. p23=Osp C, o53=gksnkfgds Note: Sera from individuals with the following may cross react in the Lyme Line Blot assays: other spirochetal diseases (periodontal disease, leptospirosis, relapsing fever, yaws, and pinta); connective autoimmune (Rheumatoid Arthritis and Systemic Lupus Erythematosus and also individuals with Antinuclear Antibody); other infections ([place] Spotted Fever; Hernando-Hinojosa Virus, and Cytomegalovirus). 9 Vitamin D deficiency has been defined by the [place] of Medicine and an Endocrine Society practice guideline as a level of serum 25-OH vitamin D less than 20 ng/mL (1,2). The Endocrine Society went on to further define vitamin D insufficiency as a level between 21 and 29 ng/mL (2). 1. IOM ([place] of Medicine). 2010. Dietary reference intakes for calcium and D. [place]: The National Academies Press. 2. Shaji MF, Gagan LYMAN, Rony LECHUGA, et al. Evaluation, treatment, and prevention of vitamin D deficiency: an Endocrine Society clinical practice guideline. JCEM. 2010; 96(7):1911-30. Performed at: [facility] [address] [id number] Produce Wrapper: Kylah Reynolds MD, Phone: [phone] Negative <20 Weak positive 20 - 39 Moderate positive 40 - 59 Strong positive >59 Performed at: [facility] [address] [id number] Produce Wrapper: Kylah Reynolds MD, Phone: [phone] Performed at: [address] [id number] Produce Wrapper: Ally Marquez MD, Phone: [phone] Procedures Date Code Description Status 03/06/2019 47240 EKG-Tracing And Report Completed 05/22/2013 30149984 Mammogram Completed Medical Devices Description No Information Available Encounters Type Date Location Provider Dx Diagnosis Office Visit 04/24/2019 Family Medicine Maame Haque, M06.9 Rheumatoid 8:30a Arnulfo Spain MD, PHD arthritis, unspecified M79.671 Pain in right foot E55.9 Vitamin D deficiency, unspecified I10 Essential (primary) hypertension R60.0 Localized edema R39.15 Urgency of urination J30.2 Other seasonal allergic rhinitis Z68.42 Body mass index (BMI) 45.0-49.9, adult Z13.220 Encounter for screening for lipoid disorders Z13.1 Encounter for screening for diabetes mellitus Office Visit 03/19/2019 9:00a [facility] [place] M06.9 Rheumatoid [facility] MD Maame, arthritis, PHD unspecified M79.671 Pain in right foot E55.9 Vitamin D deficiency, unspecified I10 Essential (primary) hypertension Office Visit 03/06/2019 1:00p [facility] [place] M72.2 Plantar fascial [facility] MD Maame, fibromatosis PHD H81.10 Benign paroxysmal vertigo, unspecified ear G47.9 Sleep disorder, unspecified E66.09 Other obesity due to excess calories R06.83 Snoring I10 Essential (primary) hypertension R31.9 Hematuria, unspecified R53.83 Other fatigue Assessments Date Code Description Provider 06/11/2019 M06.9 Rheumatoid arthritis, unspecified Maame Haque [...] , PHD ear 03/06/2019 G47.9 Sleep disorder, Maame Donahue MD, PHD 03/06/2019 E66.09 Other obesity due to excess calories Maame Haque MD, PHD 03/06/2019 R06.83 Snoring Maame Haque MD, PHD 03/06/2019 I10 Essential (primary) hypertension Maame Haque MD, PHD 03/06/2019 R31.9 Hematuria, unspecified Maame Haque MD, PHD 03/06/2019 R53.83 Other fatigue Maame Haque MD, PHD Plan of Treatment Future Appointment(s):07/10/2019 8:30 am - [facility] PH[facility]2019 - Maame Haque MD, PHDM06.9 Rheumatoid arthritis, unspecifiedNew Medication:Tramadol HCL 50 mg - 1 tab by mouth twice a day as neededTylenol 8 Hour Arthritis Pain 650 mg - 1 tab by mouth twice a day as neededComments:no prednisone or motrin for 3 days after toradol shot. Use tylenol arthritis and then tramadol if still terrible.R60.0 Localized edemaNew Medication:Furosemide 20 mg - 1-2 tab by mouth every morning with potassium as needed for water retentionPotassium Chloride E[place]ice ER 10 Meq - 1 tab by mouth every day with [id number] Essential (primary) hypertensionComments:PRESSURE POINTS1 What high blood pressure is. Blood pressure is the force that your blood exerts onthe leija of the arteries it flows through, just like water flowing through a garden hose pushes against the hose??s leija. Your blood pressure consists of two numbers. ??Systolic is the pressure on blood vessel leija during heart beats,?? says Colin Singleton, professor of cardiovascular disease prevention at the [employer]. ??Diastolic is the pressure between beats,?? so it??s lower. When people have high blood pressure??also called hypertension??it??s often because blood vessels are too rigid to expand when the heart pumps. It??s as though the hose were made of glass instead of rubber. 2 Everyone is at risk. Why worry about high blood pressure if you haven??t been diagnosed with it? Because, odds are, you eventually will be. ??Over time, 90 percent of people in this country develop hypertension,?? says Geremias Pollock, professor of preventive medicine at the [employer]. That??s because blood pressure typically creeps up as youage. In the Atherosclerosis Risk in Communities study, which followed more than 15,000 Americans aged 45 to 64, average systolic blood pressure calvin by five points in five years.1 ??Blood pressures drift upward as people get older and they??re exposed to long-term excess sodium,?? explains Phill. ??That??s why almost all adults are going to get blood pressures that put them at higher risk for heart disease and stroke.?? But most hypertension is preventable with a healthy diet and exercise, he adds.3 Your risk starts to rise at any blood pressure above ?? normal.?? Doctors used to diagnose patientswith hypertension when their systolic pressure reached NORMAL BLOOD PRESSURE <120/<80 * Recommendations : Healthy lifestyle choices and yearly checks.ELEVATED BLOOD PRESSURE 120-129/& lt;80 * Recommendations: Healthy lifestyle changes, reassessed in 3-6 months.HIGH BLOOD PRESSURE / STAGE 1 130-139/80-89 * Recommendations: 10-year heart disease and stroke risk assessment. If less than 10% risk, lifestyle changes, reassessed in 3-6 months. If higher, lifestyle changes and medication with monthly follow-ups until blood pressure is controlled. HIGH BLOOD PRESSURE / STAGE 2 >140/>90 * Recommendations: Lifestyle changes and 2 different classes of medicine, with monthly follow-ups until blood pressure is controlled.How much diet and exercise can lower your blood pressure Got high blood pressure? You??re in good company.Nearly half of [place] adults now have hypertension, according to recent guidelines from the [place] Heart Association and the [place] College of Cardiology.That means that many people who had ??prehypertension?? according to the old guidelines now have ??stage 1 hypertension.?? Most of them don??t need to start taking drugs to lower their pressure (that depends on other risk factors). Instead, the guidelines recommend a healthy lifestyle.Why? Because it works. Here??s how much your systolic pressure (the higher of your two blood pressure numbers) could fall with diet and exercise, according to the new guidelines:1. Eat a DASH diet: 11 pointsDon??t want to count servings?Start by filling half your plate with fruits and vegetables.A DASH-style diet does it all: protects your heart, piles on the fruits and veggies, and cuts unhealthy carbs. It??s not only low in saturated fat, sugar, and salt, it??s also rich in nutrients like potassium, magnesium, calcium, and fiber.Plus, DASH works for omnivores or vegetarians.2. Exercise: 5 pointsAny kind of exercise helps.All formsof exercise will lower blood pressure, but the best evidence is for aerobic activity. Aim for 90 to 150 minutes a week of aerobics (brisk walking, biking, running, etc.) and/or resistance training (biceps curls, leg presses, etc.).If you??re starting with walking, here??s how to ramp up the intensity gradually.3. Lose weight: 5 pointsDropping extra pounds can lower your pressure.Losing excess weight helps lower blood pressure. Expect about a 1 point drop in systolic pressure for every 2 pounds you lose.4. Cut salt: 5 pointsMost sodium comes from packaged and restaurant foods that don??t even taste salty.To lower blood pressure, cut your sodium by 1,000 milligrams a day, ideally to 1,500 mg a day. Start with these seven foods.Bread. About 100 to 200 mg of sodium per slice is typical. Pepperidge Farm and some other brands make it easy to stay at the low end.Cheese. Most types have 150 to 250 mg ofsodium per ounce. Try [place] (just 40 to 60 mg) or fresh mozzarella (80 to 100 mg) or just 1 ??slim cut?? or ??thin ?? slice of your favorite variety.Poultry. The salt solution that??s often added to rawchicken or turkey can add 120 mg of sodium to the poultry??s 80 mg of (naturally occurring) sodium. So avoid poultry with labels like ??Contains up to 15% of a solution.??Deli meats. Just 2 oz. can pile 500 to 700 mg of sodium on your sandwich. Get Boar??s Head??s (or another brand??s) ??low-sodium? ? meats that are sliced at the deli counter (about 50 to 80 mg in 2 oz.).Soup. Most soups deliver 600 to 900 mg of sodium per cup. Try Imagine, Yellow[place], Dr. Ferraro??s, April??s Organic, or Silk Winding Machine [employer] Jimi??s ??Light in Sodium?? or ??Reduced Sodium?? soups instead (200 to 400 mg).Pizza. You can easily get 1,000 mg of sodium in 2 slices. Go light on the cheese, and replace meat with veggies (not olives).Restaurant entre??es. Many pack 1,000 to 2,000 mg of sodium. Save half for later. And add a side salad or other veggies to boost potassium.5. Get more potassium: 4 to 5 pointsAnother reason to eat more vegetables: potassium.The goal: Get 3,500 to 5,000 milligrams of potassium a day. You??ll get the most bang for your calorie renae with fruits and vegetables. Some examples: Calories Potassium (mg):Baked potato with skin (1 small) 130 750 Beet greens (?? cup cooked) 20 650 Yellowfin tuna (4 oz. cooked) [id number] Sweet potato with skin (1 small) 130 540 Wild Coho salmon (4 oz. cooked) 160 490 Spinach (?? cupcooked) 20 420 Banana (1) 110 420 Low-fat plain yogurt (6 oz.) 110 400 Fat-free milk (1 cup) 80 380 Cantaloupe (??) 50 370 Lentils (?? cup cooked) 120 370 [place] beans ( ?? cup cooked) 120 370 Tomato sauce (?? cup) 30 360 Avocado (?? cup) 120 360 Spinach (2 cups raw) 10 340 Shelled edamame (?? cup cooked) 100 340 [place] or nectarine (1) 60 290 [place] sprouts (?? cup cooked) 30 250 [place] (1) 70 240 Lalo lettuce (2 cups raw) 10 230 Apple (1) 100 200 6. Limit alcohol: 4 pointsLimiting alcohol helps keep your pressure in check.If you drink, stop at one drink a day for women or two for men.Find this article interesting and useful? Order a copy of Safe & Easy Steps to Lower Your Blood Pressure. Nine out of 10 Americans will eventually have high blood pressure and, with it, an increased risk of stroke, heart attack, diabetes, dementia, and more. Eating the right diet, losing weight, and exercising can keep your pressure under control. And, if you do have hypertension, it can lower your pressureas much as? ?or more than??prescription drugs. This booklet, from the editors of [employer], shows you how. (48 pages)Dr. Haque Can Print this out for you.The information in this post first appeared in [employer] Health[employer] in May 2017.WHAT WORKS? If you have high blood pressure, here??s roughly how much of a drop in systolic pressure you can expect from changes in diet and from exercise.Advice ~ What It Means ~ Typical Drop in Systolic Blood Pressure: Maintain a Normal Weight ~ Lose??or don??t gain??excess weight ~ 5 points for every 10 pounds you lose. Follow a DASH Diet ~ Eat a diet: ?? rich in vegetables & fruits ?? that includes whole grains, low-fat dairy, poultry, fish, beans, nuts, & oils ?? low in sugar & red meat ~ 11 pointsCut Sodium ~ Consume no more than 2,400??milligrams a day (1,500 mg a day lowers pressure even more)~ 5 pointsBoost Potassium ~ Shoot for 3,500 to 5,000 milligrams a day, mostly from fruits and vegetables ~ 4-5 pointsExercise ~ Doat least 30 minutes of aerobic activity (like brisk walking) most days of the week ~ 5 pointsLimitAlcohol ~ Men: No more than 2 drinks a day Women: No more than 1 drink a day ~ 4 [id number] Body mass index (BMI) 45.0-49.9, adultFollow up:4 week follow up Functional Status Functional Condition Comment Date Status Independent with all ADL's Active Mental Status Description No Information Available Referrals Refer to Reason for Referral Status Appt Date Jeffrey Barboza MD New Dx Rheumatoid Arthtritis RF positive, Closed 2018 Elevated Sed, CRP. Vit D deficient. Starting prednisone short course then Methotrexate. Main pain in right foot and bilateral knees are chronic. [facility] [address] [address] [phone]
[2019-07-24 10:13] VITALS: BP 150/64
--- NOTE | 2019-07-24 10:40 | UC ---
Respiratory Complaint HPI - HPI Summary HPI Summary: 69 y/o female presents to the urgent care c/o dry cough nasal congestion w/ clear nasal discharge, fatigue, body aches, chills and mild dizziness since Monday07/21/2019. Yesterday, she developed mild wheezing. She has been taking OTC medications w/o any improvement. Pt has low grade fever on Monday, but nothing yesterday. Pt denies Hx of smoking, SOB, chest pain, abdominal pain, neck pain, N/V/D. - History of Current Complaint Chief Complaint: UCGeneralIllness Stated Complaint: DIZZY,NAUSEA,COUGH Time Seen by Provider: 07/24/19 10:38 Hx Obtained From: Patient Onset/Duration: Gradual Onset, Lasting Days - 3 days, Still Present, Worse Since - yesterday Timing: Intermittent Episodes Severity Initially: Mild Severity Currently: Moderate Pain Intensity: 0 Pain Scale Used: 0-10 Numeric Character: Cough: Productive, Sputum Description: - clear Aggravating Factors: Recumbent Position Alleviating Factors: OTC Meds Associated Signs And Symptoms: Positive: Chills, Wheezing, URI, Nasal Congestion - clear - Risk Factors Pulmonary Embolism Risk Factors: Negative Cardiac Risk Factors: Negative Pseudomonas Risk Factors: Negative Tuberculosis Risk Factors: Negative - Allergies/Home Medications Allergies/Adverse Reactions: Allergies Allergy/AdvReac Type Severity Reaction Status Date / Time No Known Allergies Allergy Verified 07/24/19 10:06 Home Medications: Home Medications Albuterol HFA INHALER* [Ventolin HFA Inhaler*] 1 - 2 puff INH Q6H PRN #1 mdi 09/08 [Rx] Fluticasone NASAL SPRAY 50MCG* [Flonase NASAL SPRAY 50MCG*] 1 spray DAILY [History Confirmed 07/24/19] Furosemide TAB* [Lasix TAB*] 20 mg PO DAILY 07/24/19 [History Confirmed 07/24/19 ] Methotrexate TAB* 2.5 mg PO Q7D 07/24/19 [History Confirmed 07/24/19] Potassium Chlor TAB* [Klor Con ER TAB 10 MEQ*] 10 meq PO DAILY 07/24/19 [ History Confirmed 07/24/19] metFORMIN* [Glucophage 1000 MG TAB *] 500 - 1,000 mg DAILY 07/24/19 [History Confirmed 07/24/19] predniSONE [Prednisone 20 MG TAB] 1 tab DAILY PRN 07/24/19 [History Confirmed ] traMADol TAB* [Ultram*] 50 mg PO Q12H PRN 07/24/19 [History Confirmed 07/24/19] PMH/Surg Hx/FS Hx/Imm Hx Previously Healthy: Yes Endocrine History: Diabetes Other Endocrine History: RA - Surgical History Surgical History: Yes Surgery Procedure, Year, and Place: Appendectomy - Family History Known Family History: Positive: Diabetes - Social History Occupation: Employed Full-time Lives: With Family Alcohol Use: Occasionally Substance Use Type: None Smoking Status (MU): Never Smoked Tobacco Length of Time of Smoking/Using Tobacco: 1 PPD x 4-5 Years When Did the Patient Quit Smoking/Using Tobacco: ~1974 - Immunization History Most Recent Influenza Vaccination: February 2015 Review of Systems All Other Systems Reviewed And Are Negative: Yes Constitutional: Positive: Chills, Fatigue, Other - body aches Skin: Positive: Negative Eyes: Positive: Negative ENT: Positive: Nasal Discharge - clear, Other - PND Respiratory: Positive: Cough - productive w/ clear phlegm, Other - mild wheezing Cardiovascular: Positive: Negative Gastrointestinal: Positive: Negative Genitourinary: Positive: Negative Motor: Positive: Negative Neurovascular: Positive: Negative Musculoskeletal: Positive: Myalgia Neurological/Mental Status: Positive: Negative Psychological: Positive: Negative Is Patient Immunocompromised?: No Physical Exam - Summary Physical Exam Summary: Vital Signs Reviewed: Yes General: well developed, well nourished obese female sitting in the examining table w/o any apparent distress Eyes: Positive: Conjunctiva Clear - PERRLA, EOMI, fundi grossly normal ENT: Positive: Normal ENT inspection, Hearing grossly normal, Pharynx normal, Nasal congestion - edematous and erythematous nasal mucosa, Nasal drainage - yellowish drainage, TMs normal. Negative: Tonsillar swelling, Tonsillar exudate Neck: Positive: Supple, Nontender, No Lymphadenopathy Respiratory: no orthopnea or dyspnea. Able to speak in full sentences, no retractions or accessory muscle use, no tripod position, stridor, or head bobbing. Positive breath sounds bilaterally. Mild scattered wheezing and rhonchi on posterior b/L lungs, no crackles or rales. Cardiovascular: Positive: RRR, No Murmur, Pulses Normal, Brisk Capillary Refill Abdomen Description: Positive: Nontender, No Organomegaly, Soft. Negative: CVA Tenderness (R), CVA Tenderness (L) Bowel Sounds: Positive: Present Musculoskeletal Exam: Normal Musculoskeletal: Positive: Strength Intact, ROM Intact, No Edema Neurological Exam: Normal Psychological Exam: Normal Skin Exam: Normal Triage Information Reviewed: Yes Vital Signs: Initial Vital Signs Temp 98.6 F 07/24/19 10:09 Pulse 84 07/24/19 10:09 Resp 16 07/24/19 10:09 BP 150/64 07/24/19 10:09 Pulse Ox 97 07/24/19 10:09 Respiratory Course/Dx - Course Course Of Treatment: 69 y/o female presents to the urgent care c/o dry cough nasal congestion w/ clear nasal discharge, fatigue, body aches, chills and mild dizziness since Monday07/21/2019. Yesterday, she developed mild wheezing. She has been taking OTC medications w/o any improvement. Pt has low grade fever on Monday, but nothing yesterday. Pt denies Hx of smoking, SOB, chest pain, abdominal pain, neck pain, N/V/D. Hx obtained. Pt w/mild scattered wheezing and rhonchi on b/L lungs, no crackles or rales. O2Sat: 97%. RApid influenza A&B: negative. Pt given Albuterol neb Treatment to alleviate symptoms. Pt tolerated well treatment and lungs improved,and wheezing resolved. Chest X-ray ordered to r/o pneumonia: Impression: no acute cardiopulmonary disease observed as per radiologist. Pt w/ acute bronchitis. Patient prescribed albuterol inhaler and given aerochamber. Advised to take Robitussin PO Tabs to alleviate symptoms as directed below. The patient was recommended to increase fluid intake. Take medications as recommended. Pt's BP is elevated today advised to decrease salt in diet, monitor BP and f/u with PCP if BP continues to be elevated for further management. Pt advised to return to the clinic or f/u w/ PCP if symptoms do not improve. All D/C instructions explained. Patient understood and agree w/ plan of care. Pt left clinic hemodynamically stable , A&OX3 - Differential Dx/Diagnosis Differential Diagnosis/HQI/PQRI: Asthma, Bronchitis, Laryngitis, Lower Resp Infection, Sinusitis Provider Diagnosis: Acute bronchitis, Wheezing, Uncontrolled hypertension Discharge ED - Sign-Out/Discharge Documenting (check all that apply): Patient Departure - D/C home All imaging exams completed and their final reports reviewed: Yes - Discharge Plan Condition: Stable Disposition: HOME Prescriptions: Albuterol HFA INHALER* [Ventolin HFA Inhaler*] 1 - 2 puff INH Q6H PRN #1 mdi PRN Reason: Wheezing Patient Education Materials: Acute Bronchitis (ED) Forms: *Work Release Referrals: Maame Haque MD [Primary Care Provider] - 3 Days Additional Instructions: 1-Use albuterol inhaler w/ aerochamber as directed to alleviate cough and wheezing . Increase fluid intake, rest and eat well. 2- If symptoms do not improve or worsen or your develop SOB with fever and severe wheezing please go immediately to the ER further evaluation and treatment. 3- F/u with your PCP in 3 days if not improvement of symptoms for further management 4- Your BP is elevated today advised to decrease salt in diet, monitor BP and f/ u with PCP for further management. - Billing Disposition and Condition Condition: STABLE Disposition: Home
[2019-07-24] MEDS ORDERED: Albuterol 2.5 MG/3 ML NEB.SOL* (0.083%) INH ONE (10:53)
[2019-07-24 11:04] LABS: Influenza A Molecular Negative (Negative); Influenza B Molecular Negative (Negative)
== END 2019-07-24 11:32 | disposition home or self-care (01) ==
LOC: UCCORT 09:14
DX: J20.9 Acute bronchitis, unspecified (principal); R06.2 Wheezing; I10 Essential (primary) hypertension; R42 Dizziness and giddiness; E11.9 Type 2 diabetes mellitus without complications; M06.9 Rheumatoid arthritis, unspecified; Z79.899 Other long term (current) drug therapy; Z79.84 Long term (current) use of oral hypoglycemic drugs
CPT/HCPCS: 71046; 99212; G0463